=== PATIENT | male | born 1935 | race Caucasian/White ===

== ENCOUNTER → 2016-07-31 | Outpatient (CLI) | payer MEDICARE, OTHER | END | disposition home or self-care (01) | LOC: GMAB 10:42 | PROVIDERS: ATTEND Family Medicine | DX: R53.82 Chronic fatigue, unspecified (principal) ==

== ENCOUNTER → 2016-12-21 | Outpatient (CLI) | payer MEDICARE, OTHER | END | disposition home or self-care (01) | LOC: GMAB 10:48 | PROVIDERS: ATTEND Family Medicine | DX: Z12.5 Encounter for screening for malignant neoplasm of prostate (principal); I10 Essential (primary) hypertension | CPT/HCPCS: 84443; G0103 ==

== ENCOUNTER → 2017-06-29 | Outpatient (CLI) | payer MEDICARE, BC ==
--- NOTE | 2017-07-02 09:30 | MRI ---
MRI right ankle without contrast INDICATION: Ankle pain weakness remote fracture 5 years ago with surgery, possible instability TECHNIQUE: Noncontrast MR imaging right ankle standard protocol FINDINGS: The distal peroneus brevis is thin with tendinosis and fraying. No complete rupture or retraction. There is metal artifact in the distal fibula from previous surgery. No dislocation of the peroneal tendons. Very minimal thickening of the anterior talofibular ligament without acute rupture. Posterior tibialis and flexor tendons are intact. Tibialis anterior and extensor tendons are intact. Incidentally visualized moderate osteoarthrosis of the first TMT compartment. Small plantar spur/enthesophyte. Achilles is intact distally. Plantar aponeurosis is intact. There is metallic artifact related to an apparent anchor in the region of the junction of the talar body and neck. There is osteoarthrosis of the ankle with a remote healed posterior malleolar fracture likely in the spectrum of a syndesmotic injury. There is extensive subchondral edema and cystic change at the interface of the posterior malleolar fragment indicating grade 4 chondrosis. There is also a kissing area of subchondral edema and cystic change in the posterior talar dome slightly medial in location indicating grade 4 chondrosis and small osteochondral lesion. There is degenerative arthrosis at the interface of the posterior process of the talus and the os trigonum suggesting impingement/os trigonum syndrome. There is mild thickening of the plantar aponeurosis with mild adjacent edema indicating mild plantar fasciitis. No persistent widening of the syndesmosis. Multiple screw tracts/metal artifacts in the distal fibula healed. Small osteophytes are noted in the medial clear space of the ankle. Mild edema along the calcaneofibular ligament without rupture. 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 Thinning and tendinopathy with mild fraying distal peroneus brevis Electronically signed by: Cresencio Pineda MD 07/02/2017 9:29 AM [employer]OWER WATCHMAN
== END | disposition home or self-care (01) ==
LOC: MRI 10:54
PROVIDERS: ATTEND Orthopaedic Surgery
DX: M25.571 Pain in right ankle and joints of right foot (principal)

== ENCOUNTER → 2019-01-29 | Outpatient (CLI) | payer MEDICARE | LOC: GMAE 10:32 | PROVIDERS: ATTEND Family Medicine | DX: I10 Essential (primary) hypertension (principal); Z12.5 Encounter for screening for malignant neoplasm of prostate; E78.2 Mixed hyperlipidemia | CPT/HCPCS: 84443; G0103 ==

== ENCOUNTER 2019-03-30 18:26 | Emergency (ER) | payer MEDICARE ==
[2019-03-30] MEDS: SODIUM CHLORIDE 0.9% 1000ML 1,000 ML IVS ONE (19:44)
[2019-03-30] MEDS: ONDANSETRON ODT 8 MG TAB SL ONE (19:45)
--- NOTE | 2019-03-30 20:09 | RAD ---
EXAM: TWO VIEW SUPINE and UPRIGHT ABDOMEN AND PA CHEST RADIOGRAPHS CLINICAL INDICATION: Nausea and vomiting. Periumbilical pain. COMPARISON: Compared to the abdomen and pelvic CT examination of January 29, 2018. FINDINGS: Large gastric hiatal hernia. Cardiac size and pulmonary vasculature are normal. Left basilar scar versus atelectasis. No mechanical bowel obstruction or extraluminal bowel gas. Degenerative disease throughout the visualized spine. Cardiac size and pulmonary vasculature are normal. Remotely healed left lateral fifth, sixth and seventh rib fractures. No acute fractures on this single view of the chest. IMPRESSION: 1. Large gastric hiatal hernia. 2. No mechanical small bowel obstruction or free peritoneal gas. 3. Normal for age PA chest radiograph. Electronically signed by: Shamar Viveros MD 03/30/2019 8:07 PM CDT
[2019-03-30] MEDS: IBUPROFEN 200 MG TAB PO ONE (20:45)
[2019-03-30] MEDS: ALUMINUM & MAGNESIUM HYDROXIDE 30 ML UD PO ONE (20:45)
--- NOTE | 2019-03-30 21:05 | CT ---
PROCEDURE: CT abdomen pelvis w/o Contrast CLINICAL HISTORY: 83 years Male nvd today, fever, hx diverticulitis TECHNIQUE: Contiguous axial images obtained through the abdomen and pelvis without IV contrast. Coronal and sagittal reformatted images provided. This CT exam was performed according to our departmental dose-optimization program, which includes one or more of the following dose reduction techniques: automated exposure control, adjustment of the mA and/or kV according to patient size, and/or use of iterative reconstruction technique. COMPARISON: No prior exams provided for comparison. FINDINGS: There are no renal, ureteral, or bladder calculi. There is no hydronephrosis or perinephric stranding on either side. There are bilateral renal cysts. Moderate hiatal hernia contains the gastric fundus. The bowel is fluid-filled, a nonspecific finding which can be seen in mild enterocolitis. No bowel wall thickening, obstruction, pneumatosis, free intraperitoneal air, or ascites. Sigmoid diverticuli. Minimal bibasilar atelectasis. Trace pericardial fluid. Normal appendix. The unenhanced liver, biliary tree, gallbladder, pancreas, spleen, adrenal glands, and urinary bladder are normal. There is diffuse atherosclerosis with focal dilatation of the infrarenal abdominal aorta measuring up to 2.9 cm. No retroperitoneal hemorrhage. Chronic degenerative changes throughout the spine without acute fracture. IMPRESSION: Moderate hiatal hernia contains the gastric fundus. Fluid-filled bowel is nonspecific but could reflect mild enterocolitis. No bowel wall thickening or obstruction. 2.9 cm infrarenal abdominal aortic aneurysm should be followed up every five years. Electronically signed by: Windy Luo MD 03/30/2019 9:03 PM CDT
[2019-03-30] MEDS ORDERED: PIPERACILLIN/TAZOBACTAM 3.375 GM VIAL IVPB ONE (21:25)
[2019-03-30] MEDS ORDERED: SODIUM CHLORIDE 0.9% 100ML 100 ML IVPB ONE (21:25)
[2019-03-30] MEDS: PIPERACILLIN/TAZOBACTAM 3.375 GM in SODIUM CHLORIDE 0.9% 100ML 100 ML IVPB ONE (21:26)
[2019-03-30 21:51] VITALS: O2SAT 94
--- NOTE | 2019-03-30 22:20 | ED.PDOC ---
History of Present Illness - General Chief Complaint: Abdominal Pain Stated Complaint: lower abdominal pain, nausea Time Seen by Provider: 03/30/19 18:54 Source: patient Exam Limitations: no limitations - History of Present Illness Initial Comments: the patient is an 83-year-old male presenting to the emergency room secondary to nausea and vomiting and diarrhea since midmorning. No real focal abdominal pain just generalized abdominal discomfort. He does actually have a fever here. No syncope or near-syncope. He has had a history of diverticulitis. He feels like he may be a little bit dehydrated. No chest pain or shortness of breath. No trauma. Timing/Duration: 4-6 hours Severity: moderate Improving Factors: nothing Worsening Factors: nothing Associated Symptoms: fever/chills, loss of appetite, malaise, nausea/vomiting Allergies/Adverse Reactions: Allergies Codeine Allergy (Verified 09/08/15 11:24) Erythromycin Allergy (Verified 09/08/15 11:24) Hydrocodone Allergy (Verified 09/08/15 11:24) Levofloxacin [From Levaquin] Allergy (Verified 09/08/15 11:24) Home Medications: Ambulatory Orders Apraclonidine HCl [Apraclonidine] 1 drop BOTH_EYES DAILY 08/03/15 Dorzolamide 2% Opth 1 drop BOTH_EYES DAILY 08/03/15 Fenofibrate Micronized [Fenofibrate] 130 mg PO DAILY 08/03/15 Gabapentin 600 mg PO BEDTIME 08/03/15 Latanoprost 0.005% Ophth [Xalatan 0.005% Ophthalmic Drops] 0.05 drop BOTH_EYES 08/03/15 Omeprazole 20 mg PO DAILY 08/03/15 Pilocarpine 1% Opth Michelle 1 drop BOTH_EYES DAILY 08/03/15 Propafenone [Rythmol] 150 mg PO DAILY 08/03/15 Rivaroxaban [Xarelto] 20 mg PO DAILY 08/03/15 Valsartan 320 mg PO DAILY 08/03/15 Verapamil HCl [Verelan] 240 mg PO DAILY 08/03/15 Albuterol Inhaler [Ventolin Hfa Inhaler] 1 puff INH QID PRN 09/08/15 Albuterol Sulfate Nebs [Proventil Nebs] 2.5 mg NEB BID 09/08/15 Levalbuterol HCl [Xopenex] 0.63 mg INH BID PRN 09/08/15 Montelukast Sodium 10 mg PO DAILY #14 tab 09/08/15 Amoxicillin & Pot Clavulanate [Augmentin Tab] 875 mg PO BID #10 tab 03/30/19 Metronidazole 500 mg PO TID #14 tab 03/30/19 Ondansetron Odt [Zofran ODT] 4 mg PO Q8HR PRN #5 tab 03/30/19 Sucralfate Tab [Carafate Tab] 1 gm PO QID #30 tab 03/30/19 Review of Systems - Review of Systems Constitutional: States: no symptoms reported EENTM: States: no symptoms reported Respiratory: States: no symptoms reported Cardiology: States: no symptoms reported Gastrointestinal/Abdominal: States: see HPI Genitourinary: States: no symptoms reported Musculoskeletal: States: no symptoms reported Skin: States: no symptoms reported Neurological: States: no symptoms reported Endocrine: States: no symptoms reported All other Systems: No Change from Baseline Past Medical History (General) - Patient Medical History Hx Stroke: No Hx Asthma: Yes Hx Cardiac Disorders: Yes - a fib Hx Congestive Heart Failure: No Hx Hypertension: Yes Hx Diabetes: No Hx Gastroesophageal Reflux: Yes - Vaccination History Hx Tetanus, Diphtheria Vaccination: Yes - states less than 5 years Hx Influenza Vaccination: No Hx Pneumococcal Vaccination: Yes - Social History Hx Tobacco Use: Yes Family Medical History - Family History Father Family History: Unknown Physical Exam - Physical Exam General Appearance: Alert, Comfortable, No apparent distress Eye Exam: bilateral normal Ears, Nose, Throat: hearing grossly normal - chronic bilateral hearing loss, normal ENT inspection Neck: full range of motion, supple Respiratory: lungs clear, normal breath sounds, no respiratory distress, no accessory muscle use Cardiovascular/Chest: normal peripheral pulses, no edema, other - regular rate Peripheral Pulses: radial,right: 2+, radial,left: 2+ Gastrointestinal/Abdominal: soft, other - diffuse discomfort generalized Rectal Exam: deferred Back Exam: no CVA tenderness, no vertebral tenderness Extremity: non-tender, normal inspection, no pedal edema, normal capillary refill Neurologic: guest relations receptionist II-XII nml as tested, alert, normal mood/affect, oriented x 3 Skin Exam: normal color Comments: Vital Signs - 24 hr 03/30/19 03/30/19 03/30/19 19:06 20:00 21:03 Temperature 101.1 F H Pulse Rate [ 85 86 88 Left] Respiratory 20 18 18 Rate Blood Pressure 165/97 163/88 146/32 [Right Arm] O2 Sat by Pulse 95 93 L 94 L Oximetry Progress - Progress Progress: 03/30/19 22:20 the patient is an 83-year-old male presenting to the emergency room secondary to nausea vomiting and diarrhea that started earlier today. He does have a fever as well. Unfortunately the patient is a very difficult blood draw and has refused any further blood draws. We do not have any corresponding labs. Urinalysis was clear. The patient did receive a liter of IV fluids. CT scan is consistent with enterocolitis. No obstruction. No diverticulitis. The patient is going to be placed on 5 days of metronidazole and Augmentin. He did receive a dose of Zosyn here tonight. The patient faired much better after a dose of Zofran here and he will be written for some to use as an outpatient for nausea control. Additionally he'll be written for 1 week's worth of Carafate. ER warnings were given for any worsening. Follow back up with primary care doctor in 2-3 days. karrie george [phone] - Results/Orders Results/Orders: Laboratory Tests 03/30/19 20:51 Urine Color Yellow Urine Appearance Clear Urine pH 5.0 Ur Specific [place] 1.025 Urine Protein 30 Urine Glucose (UA) Negative Urine Ketones Trace Urine Blood Negative Urine Nitrite Negative Urine Bilirubin Negative Urine Urobilinogen 0.2 Ur Leukocyte Esterase Negative Urine RBC 0 Urine WBC 0 Ur Epithelial Cells 3-5 Urine Bacteria 1+ Urine Mucus Small CT scan of abdomen and pelvis shows a 2.9 cm infrarenal aortic aneurysm. He does have a significant hiatal hernia. He does have some intestinal fluid consistent with enterocolitis. Departure - Departure Clinical Impression: Enterocolitis Disposition: Discharge to Home or Self Care Condition: Fair Departure Forms: ED Discharge - Pt. Copy, Patient Portal Self Enrollment Instructions: Diarrhea and Traveler's Diarrhea, Adult (DC) Diet: bland diet Activity: increase activity as tolerated Referrals: LAUREN SAMANIEGO MD [Primary Care Provider] - 1-2 Weeks Prescriptions: Ondansetron Odt [Zofran ODT] 4 mg PO Q8HR PRN #5 tab PRN Reason: Nausea--Moderate Amoxicillin & Pot Clavulanate [Augmentin Tab] 875 mg PO BID #10 tab Metronidazole 500 mg PO TID #14 tab Sucralfate Tab [Carafate Tab] 1 gm PO QID #30 tab Home Medications: Ambulatory Orders Apraclonidine HCl [Apraclonidine] 1 drop BOTH_EYES DAILY 08/03/15 Dorzolamide 2% Opth 1 drop BOTH_EYES DAILY 08/03/15 Fenofibrate Micronized [Fenofibrate] 130 mg PO DAILY 08/03/15 Gabapentin 600 mg PO BEDTIME 08/03/15 Latanoprost 0.005% Ophth [Xalatan 0.005% Ophthalmic Drops] 0.05 drop BOTH_EYES 08/03/15 Omeprazole 20 mg PO DAILY 08/03/15 Pilocarpine 1% Opth Michelle 1 drop BOTH_EYES DAILY 08/03/15 Propafenone [Rythmol] 150 mg PO DAILY 08/03/15 Rivaroxaban [Xarelto] 20 mg PO DAILY 08/03/15 Valsartan 320 mg PO DAILY 08/03/15 Verapamil HCl [Verelan] 240 mg PO DAILY 08/03/15 Albuterol Inhaler [Ventolin Hfa Inhaler] 1 puff INH QID PRN 09/08/15 Albuterol Sulfate Nebs [Proventil Nebs] 2.5 mg NEB BID 09/08/15 Levalbuterol HCl [Xopenex] 0.63 mg INH BID PRN 09/08/15 Montelukast Sodium 10 mg PO DAILY #14 tab 09/08/15 Amoxicillin & Pot Clavulanate [Augmentin Tab] 875 mg PO BID #10 tab 03/30/19 Metronidazole 500 mg PO TID #14 tab 03/30/19 Ondansetron Odt [Zofran ODT] 4 mg PO Q8HR PRN #5 tab 03/30/19 Sucralfate Tab [Carafate Tab] 1 gm PO QID #30 tab 03/30/19 Additional Instructions: the patient is an 83-year-old male presenting to the emergency room secondary to nausea vomiting and diarrhea that started earlier today. He does have a fever as well. Unfortunately the patient is a very difficult blood draw and has refused any further blood draws. We do not have any corresponding labs. Urinalysis was clear. The patient did receive a liter of IV fluids. CT scan is consistent with enterocolitis. No obstruction. No diverticulitis. The patient is going to be placed on 5 days of metronidazole and Augmentin. He did receive a dose of Zosyn here tonight. The patient faired much better after a dose of Zofran here and he will be written for some to use as an outpatient for nausea control. Additionally he'll be written for 1 week's worth of Carafate. ER warnings were given for any worsening. Follow back up with primary care doctor in 2-3 days.
[2019-03-30 22:38] VITALS: BP 126/74; TEMP 98.9
== END 2019-03-30 22:42 | disposition home or self-care (01) ==
LOC: ER 18:26
DX: K52.9 Noninfective gastroenteritis and colitis, unspecified (principal); K44.9 Diaphragmatic hernia without obstruction or gangrene; I71.4 Abdominal aortic aneurysm, without rupture; I48.91 Unspecified atrial fibrillation; I10 Essential (primary) hypertension; K21.9 Gastro-esophageal reflux disease without esophagitis; J45.909 Unspecified asthma, uncomplicated; Z87.891 Personal history of nicotine dependence; Z79.899 Other long term (current) drug therapy; Z88.5 Allergy status to narcotic agent; Z88.1 Allergy status to other antibiotic agents
CPT/HCPCS: 74019; 74176; 81001; 87502; J2543; J7030; J7050

== ENCOUNTER 2019-10-26 16:45 | Emergency (ER) | payer MEDICARE ==
--- NOTE | 2019-10-26 16:59 | ED.PDOC ---
History of Present Illness - General Chief Complaint: Skin/Abrasion/Tear Stated Complaint: 4 cm skin tear on dorsal aspect of L hand Time Seen by Provider: 10/26/19 16:50 - History of Present Illness Initial Comments: 84-year-old male presents by personal vehicle after tearing the skin on the back of his left hand against the nail. Bleeding is been controlled, unsure of the date of his last tetanus shot. Allergies/Adverse Reactions: Allergies Codeine Allergy (Verified 10/26/19 17:01) Erythromycin Allergy (Verified 10/26/19 17:01) Hydrocodone Allergy (Verified 10/26/19 17:01) Levofloxacin [From Levaquin] Allergy (Verified 10/26/19 17:01) Home Medications: Ambulatory Orders Apraclonidine HCl [Apraclonidine] 1 drop BOTH_EYES DAILY 08/03/15 Dorzolamide 2% Opth 1 drop BOTH_EYES DAILY 08/03/15 Fenofibrate Micronized [Fenofibrate] 130 mg PO DAILY 08/03/15 Gabapentin 600 mg PO BEDTIME 08/03/15 Latanoprost 0.005% Ophth [Xalatan 0.005% Ophthalmic Drops] 0.05 drop BOTH_EYES 08/03/15 Omeprazole 20 mg PO DAILY 08/03/15 Pilocarpine 1% Opth Michelle 1 drop BOTH_EYES DAILY 08/03/15 Propafenone [Rythmol] 150 mg PO DAILY 08/03/15 Rivaroxaban [Xarelto] 20 mg PO DAILY 08/03/15 Valsartan 320 mg PO DAILY 08/03/15 Verapamil HCl [Verelan] 240 mg PO DAILY 08/03/15 Albuterol Inhaler [Ventolin Hfa Inhaler] 1 puff INH QID PRN 09/08/15 Albuterol Sulfate Nebs [Proventil Nebs] 2.5 mg NEB BID 09/08/15 Levalbuterol HCl [Xopenex] 0.63 mg INH BID PRN 09/08/15 Montelukast Sodium 10 mg PO DAILY #14 tab 09/08/15 Amoxicillin & Pot Clavulanate [Augmentin Tab] 875 mg PO BID #10 tab 03/30/19 Metronidazole 500 mg PO TID #14 tab 03/30/19 Ondansetron Odt [Zofran ODT] 4 mg PO Q8HR PRN #5 tab 03/30/19 Sucralfate Tab [Carafate Tab] 1 gm PO QID #30 tab 03/30/19 Review of Systems - Review of Systems Review of Systems: 10/26/19 16:57 General: Denies generalized weakness, fever, arthralgia/myalgia HEENT: Denies sore throat, rhinorrhea Cardiovascular: Denies chest pain, palpitations Respiratory: Denies SOB, cough Gastrointestinal: Denies abdominal pain, vomiting, diarrhea : Denies dysuria, frequency Musculoskeletal: Denies extremity pain, extremity swelling Integument: Denies rash, itching, lac as in HPI Neuro: Denies focal weakness or numbness Psych: Denies depression, hallucinations. Past Medical History (General) - Patient Medical History Hx Stroke: No Hx Asthma: Yes Hx Cardiac Disorders: Yes - a fib Hx Congestive Heart Failure: No Hx Hypertension: Yes Hx Diabetes: No Hx Gastroesophageal Reflux: Yes - Vaccination History Hx Tetanus, Diphtheria Vaccination: Yes - states less than 5 years Hx Influenza Vaccination: No Hx Pneumococcal Vaccination: Yes - Social History Hx Tobacco Use: Yes Family Medical History - Family History Father Family History: Unknown Physical Exam - Physical Exam Comments: General Appearance: Patient is awake and alert. Skin: Warm and dry. No diaphoresis. full thickness skin tear dorsum of left hand, hemostatic. Head: Normocephalic/atraumatic. Eyes: PERRL, lids, conjunctiva and sclera unremarkable. EOMI intact. ENT: No nasal discharge. Oropharynx. Without erythema, exudate, lesions. Moist mucous membranes. Neck: Supple. No LAD. No tenderness. No JVD noted. Respiratory: Normal rate and effort. Breath sounds clear bilaterally. Cardiovascular: Regular rate. Heart sounds normal. No murmur. GI: Abdomen soft, non-distended and non-tender. No rebound/guarding. Bowel sounds normal. Back: No tenderness Musculoskeletal: Extremities- Normal range of motion. No effusion, cyanosis, edema. Neurological: Alert. No facial palsy. Speech clear. Gag intact. No motor deficit, str symmetric. No sensory deficit. Procedures - Laceration/Wound Repair Left Hand Wound Length (cm): 3 Wound's Depth, Shape: irregular Wound Explored: clean Irrigated w/ Saline (cc's): 250 Wound Repaired With: dermabond Departure - Departure Clinical Impression: Laceration of left hand Time of Disposition: 17:07 Disposition: Discharge to Home or Self Care Condition: Good Departure Forms: ED Discharge - Pt. Copy, Patient Portal Self Enrollment Instructions: Laceration Repair With Glue (DC) Diet: resume usual diet Activity: increase activity as tolerated Referrals: LAUREN SAMANIEGO MD [Primary Care Provider] - 1-2 Weeks Home Medications: Ambulatory Orders Apraclonidine HCl [Apraclonidine] 1 drop BOTH_EYES DAILY 08/03/15 Dorzolamide 2% Opth 1 drop BOTH_EYES DAILY 08/03/15 Fenofibrate Micronized [Fenofibrate] 130 mg PO DAILY 08/03/15 Gabapentin 600 mg PO BEDTIME 08/03/15 Latanoprost 0.005% Ophth [Xalatan 0.005% Ophthalmic Drops] 0.05 drop BOTH_EYES 08/03/15 Omeprazole 20 mg PO DAILY 08/03/15 Pilocarpine 1% Opth Michelle 1 drop BOTH_EYES DAILY 08/03/15 Propafenone [Rythmol] 150 mg PO DAILY 08/03/15 Rivaroxaban [Xarelto] 20 mg PO DAILY 08/03/15 Valsartan 320 mg PO DAILY 08/03/15 Verapamil HCl [Verelan] 240 mg PO DAILY 08/03/15 Albuterol Inhaler [Ventolin Hfa Inhaler] 1 puff INH QID PRN 09/08/15 Albuterol Sulfate Nebs [Proventil Nebs] 2.5 mg NEB BID 09/08/15 Levalbuterol HCl [Xopenex] 0.63 mg INH BID PRN 09/08/15 Montelukast Sodium 10 mg PO DAILY #14 tab 09/08/15 Amoxicillin & Pot Clavulanate [Augmentin Tab] 875 mg PO BID #10 tab 03/30/19 Metronidazole 500 mg PO TID #14 tab 03/30/19 Ondansetron Odt [Zofran ODT] 4 mg PO Q8HR PRN #5 tab 03/30/19 Sucralfate Tab [Carafate Tab] 1 gm PO QID #30 tab 03/30/19 Comments: Mansoor Haley MD Emergency Medicine #[id number]
[2019-10-26 17:01] VITALS: BP 153/130; TEMP 97.4; O2SAT 96
[2019-10-26] MEDS: TETANUS,DIPHTHERIA,PERTUSSIS 1 EA SYG IM ONE (17:02)
== END 2019-10-26 17:15 | disposition home or self-care (01) ==
LOC: ER 16:45
DX: S61.412A Laceration without foreign body of left hand, initial encounter (principal); I48.91 Unspecified atrial fibrillation; I10 Essential (primary) hypertension; W45.0XXA Nail entering through skin, initial encounter; Y92.9 Unspecified place or not applicable

== ENCOUNTER 2020-01-23 17:47 | Emergency (ER) | payer MEDICARE, BC ==
[2020-01-23 18:20] VITALS: BP 157/91; TEMP 97.6; O2SAT 96
--- NOTE | 2020-01-23 19:10 | ED.PDOC ---
History of Present Illness - General Chief Complaint: Laceration Stated Complaint: Laceration right forearm Time Seen by Provider: 01/23/20 19:08 Source: patient, RN notes reviewed, Vital Signs reviewed Exam Limitations: no limitations - History of Present Illness Initial Comments: Patient is an 84-year-old white male who presents with complaints of right arm laceration. This occurred approximately 6 hours prior to arrival. It reoccurred on a car door. Patient is on blood thinners. He was able to control the bleeding with direct pressure. Patient presents for laceration repair. Patient complains of mild pain. It is burning in nature. It is constant. Nothing makes it better or worse. There is no radiation of the pain. Timing/Duration: this afternoon Severity: mild Location: extremities - Right forearm Improving Factors: nothing Worsening Factors: nothing Associated Symptoms: denies symptoms Allergies/Adverse Reactions: Allergies Codeine Allergy (Verified 01/23/20 18:10) Erythromycin Allergy (Verified 01/23/20 18:10) Hydrocodone Allergy (Verified 01/23/20 18:10) Levofloxacin [From Levaquin] Allergy (Verified 01/23/20 18:10) Home Medications: Ambulatory Orders Apraclonidine HCl [Apraclonidine] 1 drop BOTH_EYES DAILY 08/03/15 Dorzolamide 2% Opth 1 drop BOTH_EYES DAILY 08/03/15 Fenofibrate Micronized [Fenofibrate] 130 mg PO DAILY 08/03/15 Gabapentin 600 mg PO BEDTIME 08/03/15 Latanoprost 0.005% Ophth [Xalatan 0.005% Ophthalmic Drops] 0.05 drop BOTH_EYES 08/03/15 Omeprazole 20 mg PO DAILY 08/03/15 Pilocarpine 1% Opth Michelle 1 drop BOTH_EYES DAILY 08/03/15 Propafenone [Rythmol] 150 mg PO DAILY 08/03/15 Rivaroxaban [Xarelto] 20 mg PO DAILY 08/03/15 Valsartan 320 mg PO DAILY 08/03/15 Verapamil HCl [Verelan] 240 mg PO DAILY 08/03/15 Albuterol Inhaler [Ventolin Hfa Inhaler] 1 puff INH QID PRN 09/08/15 Albuterol Sulfate Nebs [Proventil Nebs] 2.5 mg NEB BID 09/08/15 Levalbuterol HCl [Xopenex] 0.63 mg INH BID PRN 09/08/15 Montelukast Sodium 10 mg PO DAILY #14 tab 09/08/15 Metronidazole 500 mg PO TID #14 tab 03/30/19 Ondansetron Odt [Zofran ODT] 4 mg PO Q8HR PRN #5 tab 03/30/19 Sucralfate Tab [Carafate Tab] 1 gm PO QID #30 tab 03/30/19 Clindamycin HCl [Clindamycin Hydrochloride] 300 mg PO QID #20 cap 01/23/20 Review of Systems - Review of Systems Constitutional: States: no symptoms reported, see HPI. Denies: chills, fever, malaise, weakness EENTM: States: no symptoms reported. Denies: eye pain, blurred vision, double vision Respiratory: States: no symptoms reported. Denies: cough, short of breath, stridor Cardiology: States: no symptoms reported. Denies: chest pain, palpitations, syncope Gastrointestinal/Abdominal: States: no symptoms reported. Denies: abdominal pain, nausea, vomiting Musculoskeletal: States: no symptoms reported. Denies: back pain, neck pain Skin: States: see HPI, other - Superficial laceration to right forearm. Neurological: States: no symptoms reported. Denies: tingling, tremors, weakness Endocrine: States: no symptoms reported Hematologic/Lymphatic: States: no symptoms reported All other Systems: Reviewed and Negative Past Medical History (General) - Patient Medical History Hx Stroke: No Hx Asthma: Yes Hx Cardiac Disorders: Yes - a fib Hx Congestive Heart Failure: No Hx Hypertension: Yes Hx Diabetes: No Hx Gastroesophageal Reflux: Yes Hx Cancer: No Hx Hepatitis C: No Surgical History: tonsillectomy - Vaccination History Hx Tetanus, Diphtheria Vaccination: Yes Hx Influenza Vaccination: Yes Hx Pneumococcal Vaccination: Yes - Social History Hx Tobacco Use: Yes Hx Alcohol Use: No - Female History Patient : No Family Medical History - Family History Father Family History: Unknown Living Status: Physical Exam - Physical Exam General Appearance: Alert, Comfortable, Well Developed, Well Groomed, Well Hydrated, Well Nourished Eyes, Ears, Nose, Throat Exam: PERRL/EOMI, normal ENT inspection, pharynx normal Neck: non-tender, full range of motion, supple, normal inspection Cardiovascular/Chest: normal peripheral pulses, no edema, no JVD Respiratory: chest non-tender, lungs clear, normal breath sounds, no respiratory distress Gastrointestinal/Abdominal: non tender, soft Back Exam: normal inspection, no CVA tenderness Extremity: normal range of motion, non-tender, other - 3.5 cm superficial proximal forearm laceration on the dorsal surface. The laceration does not impairs the dermal layer. 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 Lymphatic: no adenopathy Progress - Progress Progress: Differential diagnosis: Skin tear, skin laceration, tendon laceration, muscle laceration among others. 01/23/20 19:12 Wound was repaired with Dermabond. Patient tolerated the procedure well. Plan to discharge home with follow-up with PCP. I discussed this plan of care with the patient and he voices understanding and agreement with the plan of care. - EKG/XRAY/CT CT Ordered: No CT Interpretation Call Back: No Procedures - Laceration/Wound Repair Right Upper Proximal Dorsal Arm Wound's Depth, Shape: superficial, linear Wound Explored: clean Irrigated w/ Saline (cc's): 50 Betadine Prep?: No Volume Anesthetic (cc's): 0 - No anesthetic used for repair. Wound Debrided: No wound debridement. Wound Repaired With: dermabond Layer Closure?: No Sterile Dressing Applied?: No Splint Applied?: No Sling Applied?: No Progress: Patient with a linear very superficial partial laceration of the dermis on the right proximal forearm on the dorsal surface. It is approximately 3 cm in length. The wound was cleansed. Dermabond was applied. Patient tolerated the procedure well. There were no complications.Patient is up-to-date on his tetanus shot. Departure - Departure Clinical Impression: Laceration of forearm Qualifiers: Encounter type: initial encounter Laterality: right Qualified Code(s): S51.811A - Laceration without foreign body of right forearm, initial encounter Time of Disposition: 19:17 Disposition: Discharge to Home or Self Care Condition: Good Departure Forms: ED Discharge - Pt. Copy, Patient Portal Self Enrollment Diet: resume usual diet Activity: increase activity as tolerated Referrals: LAUREN SAMANIEGO MD [Primary Care Provider] - 1-5 Days Prescriptions: Clindamycin HCl [Clindamycin Hydrochloride] 300 mg PO QID #20 cap Home Medications: Ambulatory Orders Apraclonidine HCl [Apraclonidine] 1 drop BOTH_EYES DAILY 08/03/15 Dorzolamide 2% Opth 1 drop BOTH_EYES DAILY 08/03/15 Fenofibrate Micronized [Fenofibrate] 130 mg PO DAILY 08/03/15 Gabapentin 600 mg PO BEDTIME 08/03/15 Latanoprost 0.005% Ophth [Xalatan 0.005% Ophthalmic Drops] 0.05 drop BOTH_EYES 08/03/15 Omeprazole 20 mg PO DAILY 08/03/15 Pilocarpine 1% Opth Michelle 1 drop BOTH_EYES DAILY 08/03/15 Propafenone [Rythmol] 150 mg PO DAILY 08/03/15 Rivaroxaban [Xarelto] 20 mg PO DAILY 08/03/15 Valsartan 320 mg PO DAILY 08/03/15 Verapamil HCl [Verelan] 240 mg PO DAILY 08/03/15 Albuterol Inhaler [Ventolin Hfa Inhaler] 1 puff INH QID PRN 09/08/15 Albuterol Sulfate Nebs [Proventil Nebs] 2.5 mg NEB BID 09/08/15 Levalbuterol HCl [Xopenex] 0.63 mg INH BID PRN 09/08/15 Montelukast Sodium 10 mg PO DAILY #14 tab 09/08/15 Metronidazole 500 mg PO TID #14 tab 03/30/19 Ondansetron Odt [Zofran ODT] 4 mg PO Q8HR PRN #5 tab 03/30/19 Sucralfate Tab [Carafate Tab] 1 gm PO QID #30 tab 03/30/19 Clindamycin HCl [Clindamycin Hydrochloride] 300 mg PO QID #20 cap 01/23/20
[2020-01-23] MEDS ORDERED: CLINDAMYCIN PHOSPHATE 150 MG/ML VIAL IM ONE (19:18)
== END 2020-01-23 19:28 | disposition home or self-care (01) ==
LOC: ER 17:47
DX: S51.811A Laceration without foreign body of right forearm, initial encounter (principal); I48.91 Unspecified atrial fibrillation; J45.909 Unspecified asthma, uncomplicated; I10 Essential (primary) hypertension; K21.9 Gastro-esophageal reflux disease without esophagitis; Z87.891 Personal history of nicotine dependence; Z79.899 Other long term (current) drug therapy; Z79.01 Long term (current) use of anticoagulants; Z88.5 Allergy status to narcotic agent; Z88.1 Allergy status to other antibiotic agents; W45.8XXA Other foreign body or object entering through skin, initial encounter; Y92.9 Unspecified place or not applicable

== ENCOUNTER → 2020-02-17 | Outpatient (CLI) | payer MEDICARE, BC | LOC: GMAE 11:19 | PROVIDERS: ATTEND Family Medicine | DX: Z12.5 Encounter for screening for malignant neoplasm of prostate (principal); I10 Essential (primary) hypertension; E11.9 Type 2 diabetes mellitus without complications; E78.2 Mixed hyperlipidemia | CPT/HCPCS: 84443; G0103 ==